=== PATIENT | male | born 1950 | race Caucasian/White ===

== ENCOUNTER → 2022-05-25 07:19 | Outpatient (CLI) | payer OTHER, SELFPAY ==
[2022-05-25 08:16] LABS: Add Manual Diff / Slide Review NO; Basophils Absolute Auto 0 /uL (0-100); Eosinophils Absolute Auto 300 /uL (0-450); Eosinophils Percent Auto 6.9 % (2-4); Hematocrit 38.5 % (41-53); Hemoglobin 13.2 g/dL (13.5-17.5); Lymphocytes Absolute Auto 700 /uL (1100-4500); Lymphocytes Percent Auto 16.2 % (25-40); Mean Corpuscular HGB Conc 34.4 % (30-36); Mean Corpuscular Hemoglobin 34.3 PG (26-34); Mean Corpuscular Volume 99.7 fL (80-100); Monocytes Absolute Auto 600 /uL (0-900); Monocytes Percent Auto 12.6 % (3-14); Neutrophils Absolute Auto 2900 /uL (1500-7000); Neutrophils Percent Auto 63.3 % (50-75); Platelet Count 205 X10^3/uL (150-400); Red Blood Cell Count 3.86 X10^6/uL (4.5-5.9); Red Cell Distribution Width 13.7 % (11.6-14.8); White Blood Cell Count 4.6 X10^3/uL (4.5-11.0)
[2022-05-25 09:17] LABS: BUN Creatinine Ratio 35.8 (6-22); Blood Urea Nitrogen 24 mg/dL (9-20); Calcium 9.1 mg/dL (8.4-10.2); Carbon Dioxide 30 mmol/L (22-32); Chloride 104 mmol/L (98-107); Estimated Glomerular Filt Rate > 60 mL/min (>60); Glucose 96 mg/dL (80-110); HEMOLYSIS < 15 (0-50); Potassium 4.8 mmol/L (3.4-5.1); Sodium 139 mmol/L (137-145)
== END ==
PROVIDERS: Family Provider Family Medicine; PCP Family Medicine; Referring Provider Orthopaedic Surgery; Visit Provider Orthopaedic Surgery
DX: Z01.818 Encounter for other preprocedural examination (principal); Z01.812 Encounter for preprocedural laboratory examination
CPT/HCPCS: 36415; 80048; 85025; 93005

== ENCOUNTER → 2022-09-07 10:51 | Outpatient (CLI) | payer OTHER, SELFPAY ==
[2022-09-07 12:19] LABS: COVID19 -Nasal RAPID Negative (Negative)
== END ==
PROVIDERS: Family Provider Family Medicine; PCP Family Medicine; Referring Provider Orthopaedic Surgery; Visit Provider Orthopaedic Surgery
DX: Z20.822 Contact with and (suspected) exposure to COVID-19 (principal)
CPT/HCPCS: 87635; C9803

== ENCOUNTER 2022-09-08 06:21 | Day surgery (SDC) | payer OTHER, SELFPAY ==
[2022-09-02 13:17] VITALS: BMI 24.1
[2022-09-08] VITALS (15 sets, daily range): BP systolic 98–159; BP diastolic 61–97; PULSE 85–105; RESP 12–18; TEMP 36.3–37.3; O2SAT 94–100; BMI 24.1
--- NOTE | 2022-09-08 06:00 | DI.RAD.S_ITS ---
PROCEDURE: XR HIP W PEL IF DONE LT 2V INDICATIONS: LEFT TOTAL HIP TECHNIQUE: AP pelvis with lateral view(s) of the left hip(s). COMPARISON: [facility], CR, XR HIP W PEL IF DONE LT 2V, 09/08/2022, 10:50. [facility], CR, XR PELVIS WITH LATERAL HIP LEFT, 05/21/2022, 10:27. FINDINGS: Fluoroscopic images of the left hip arthroplasty. The arthroplasty projects in the expected location. No unexpected fracture is identified. Prior right hip arthroplasty. Vasectomy clips. IMPRESSION: Expected fluoroscopic appearance of the left hip arthroplasty. Dictated by: Janusz Borges M.D. on 09/08/2022 at 11:10 Approved by: Janusz Borges M.D. on 09/08/2022 at 11:12
[2022-09-08] MEDS: ACETAMINOPHEN 325 MG TABLET 975 MG PO (06:57)
[2022-09-08] MEDS: CELECOXIB 200 MG CAPSULE PO (06:58)
[2022-09-08] MEDS: VANCOMYCIN 1,000 MG/200 ML PIGGYBACK 200 MG IV (06:58)
[2022-09-08] MEDS: PREGABALIN 75 MG CAPSULE PO (06:58)
[2022-09-08] MEDS: LACTATED RINGERS 1,000 ML 84 ML IV ×3 (06:59→09:43)
--- NOTE | 2022-09-08 07:54 | PM.PREOP ---
Pre-operative Note COVID-19 COVID-19 status: Negative Interval Note History & Physical reviewed/Exam performed by Physician: Yes Changes to H&P: No
--- NOTE | 2022-09-08 07:57 | P.OP_ITS ---
Operative Date/Time/Diagnoses Date of procedure: 09/08/22 Time of procedure: 08:10 Pre-op diagnosis: left hip OA Post-op diagnosis: same Procedure & Clinicians Procedure: left total hip arthroplasty anterior approach Same procedure as scheduled: Yes Indications: The patient has had progressively worsening left hip pain with radiographic wall ges consistent with arthritis. Non-operative management has failed and the patient has requested total hip replacement. The risks, benefits and alternatives to surgery were discussed with the patient prior to proceeding. Risks discussed included, but were not limited to, failure to relieve pain, leg length discrepancy, dislocation, stiffness, infection, nerve damage, deep venous thrombosis, pulmonary embolism, stroke, coma, heart attack, permanent paralysis and , as well as the potential need for eventual revision of the prosthetic. Surgeon: Victoria Clements Line Production Cook: Miguel Dumas Anesthesia Type: General Operative Notes Findings: Severe left hip osteoarthritis, good stability, adequate bone Closure Type: primary Specimen(s): none sent Prosthetic devices, grafts, tissues, transplants, or devices: [employer] R3 56 mm cup, neutral poly liner, size 6 anthology A standard offset stem, Oxinium 36 x +0 femoral head, one 6.5mm screw Estimated Blood Loss (mL): 200 Blood products transfused: none Procedure in detail: The patient was brought to the operating room. Patient was carefully positioned in the supine position. Time-out was performed and antibiotics were given. Anesthesia was induced. He was positioned in the on the table in order to allow hyperextension of the hip. The left lower extremity was prepped and draped in a standard sterile fashion. An anterior left hip incision was made 1 fingerbreadth lateral to the anterior superior iliac spine and extended distally towards the greater trochanter. Dissection was carried out through skin and subcutaneous tissues. Superficial hemostasis was achieved. The fascia over the tensor fascia johana was defined and incised with a knife. Two Allis clamps were used to grasp the fascia. Tensor fascia johana was retracted laterally. A gelpi retractor was placed. Dissection was carried out down along the neck. The circumflex vessels were carefully identified and cauterized with the Aqua Mantis. There was good visualization of the femoral neck. A Cobra was placed superior to the neck and the gluteus fibers were carefully stripped from that superior aspect of the capsule. A 2nd retractor was placed along the inferior aspect of the neck. The rectus insertion along the capsule was partially released. A 3rd retractor that was then gently placed over the rim of the acetabulum under the rectus. Capsule was carefully incised and released from the intertrochanteric line circumferentially superior to the mid sagittal line and inferiorly to the mid sagittal line until the lesser trochanter was palpable. A tag stitch was placed both in the superior and inferior limb of the capsular insertion. Along the acetabulum capsule was also released up to the mid sagittal 12:00 position. A portion of the labrum was resected. A saw was used to perform an osteotomy at the level of the intertrochanteric line and the junction of the superior femoral neck leaving approximately 1 finger breath of residual inferior neck above the lesser trochanter. A 2nd cut was made along the femoral neck at the base of the head and a napkin ring of neck was removed. Corkscrew was placed in the femoral head and the head was removed without difficulty. Retractors were then repositioned around the acetabulum. Residual labrum was resected and additional osteophytes were removed. A reamer that was 4 mm below the templated size was placed by hand in the acetabulum and it was reamed to centralize the acetabulum. It was then reamed up to 2 under the templated size and fluoroscopy was brought in to confirm the position of the reaming and depth of reaming. I reamed 1 under the anticipated size. A trial cup was placed and noted that it was appropriately sized and fluoroscopy confirmed position and depth. The component was open and inserted without difficulty fluoroscopic imaging was used to confirm that the cup had been adequately seated and was well positioned. It was further stabilized with a single screw. Neutral poly liner was placed. The cup was tested and noted to be stable. Attention was then directed to the femur. The femur was gently hyperextended additional capsular release was performed as needed in order to allow adequate visualization of the proximal femur with elevation of the femur. Patient was placed in a hyperextended slightly adducted position with maximum external rotation. Box osteotome was used to check for any residual neck as well as sclerotic bone along the trochanter. [place] pepper was placed in the femur. Additional broaching was performed. Canal finder was used to determine the alignment of the canal and position. Size 1 broach was placed. The canal was then appropriately broached up to the templated size as long as there was adequate stability of the broach and serial advancement of the broach without excessive impingement. Specific attention was directed at avoiding varus attempting to direct the distal aspect of the broach more anteriorly and avoiding excessive anteversion. Trial reduction showed acceptable range of motion, good stability, no posterior impingement, restorationist of leg length and appropriate lateral shuck. I also hyperflexed the hip and checked that there was no impingement anteriorly and there was good stability with flexion, adduction and internal rotation. Marcaine and Exparel were injected. The stem was placed without difficulty. Repeat trial reduction and x-ray showed acceptable overall position, length, and no evidence of the femoral fracture. Final head was placed. Wound was meticulously irrigated with normal saline. The hip was reduced and additional Exparel and Marcaine were injected. The capsule was closed with interrupted nonabsorbable sutures. The fascia of the tensor was closed with interrupted and running Vicryl. No drain was placed. Any tensor fascia johana muscle that appeared to be contused or injured which was a minimal amount was carefully resected. Capsule around the tensor was injected with Exparel and Marcaine. The skin was closed with barbed stitches for the subcutaneous tissue and skin. We also used surgical glue. The wound was dressed sterilely. Brief Betadine soak was also used and was meticulously irrigated with normal saline. Patient was transferred to recovery room in satisfactory condition. Complications: none Post-operative Condition: stable Disposition: Acute Care Plan for aftercare: The patient will be maintained on a standard total hip replacement protocol with weight bearing as tolerated and anterior hip precautions. The patient will receive Aspirin and sequential compression devices for DVT prophylaxis. The patient will be discharged home when safe for the home environment.
[2022-09-08] MEDS: CEFAZOLIN 2 GM/100 ML PREMIX 100 ML IV ×2 (08:15→20:11)
[2022-09-08] MEDS: TRANEXAMIC ACID 1,000 MG VIAL 2000 MG INJ ×2 (08:20→10:13)
[2022-09-08] MEDS: BUPIVACAINE 0.25% (PF) 60 ML, EPINEPHrine 0.3 MG INJ (08:32)
[2022-09-08] MEDS: BUPIVACAINE 0.5% (PF) VIAL 30 ML INJ (08:33)
--- NOTE | 2022-09-08 08:40 | SUR.OPER ---
Supine on padded [place] table with bilateral legs secured in padded positioning boots and suspended in positioning spars, operative leg in traction per surgeon. Head on one pillow. Arm on non-operative side secured on padded armboard <90 degrees abduction. Arm on operative side padded and resting across chest then secured with tape over sheet. Padded perineal post in place per surgeon.
--- NOTE | 2022-09-08 10:15 | DI.RAD.S_ITS ---
PROCEDURE: XR HIP W PEL IF DONE LT 2V INDICATIONS: POST OPERATIVE TOTAL LEFT HIP TECHNIQUE: AP pelvis and lateral view of the left hip acquired. COMPARISON: [facility], GIAN, XR HIP W PEL IF DONE LT 2V, 09/08/2022, 10:30. FINDINGS: Bones: Patient is status post left total hip arthroplasty, with hardware components in expected positions. The hip joint appears congruent. The visualized bony structures appear intact. Prior right total hip arthroplasty is again seen. Soft tissues: Overlying postoperative changes are noted. No suspicious soft tissue densities. IMPRESSION: Postop changes from left total hip arthroplasty with anatomic left hip alignment. Dictated by: Yonatan Castillo M.D. on 09/08/2022 at 12:17 Approved by: Yonatan Castillo M.D. on 09/08/2022 at 12:17
--- NOTE | 2022-09-08 11:22 | SUR.PHASEI ---
1120 contacted floor worker and waiting on a room for pt.
[2022-09-08] MEDS: IBUPROFEN 400 MG TABLET PO (14:50)
[2022-09-08] MEDS: ACETAMINOPHEN 325 MG TABLET 650 MG PO ×2 (14:51→20:11)
[2022-09-08] MEDS: LACTATED RINGERS 1,000 ML 125 ML IV (15:00)
--- NOTE | 2022-09-08 15:47 | PT.IIE ---
Current Diagnoses Unilateral primary osteoarthritis, left hip (09/08/22) Surgery Performed Operation Date: 09/08/22 07:45 Actual Procedures p Total Hip Arthroplasty/Anterior Approach(Left) - Victoria Clements MD Surgical History (Last Updated 09/02/22 @ 14:16 by Olive Win, RN) History of surgery History of total right hip replacement (2007) Hx of colonoscopy Medical History (Last Updated 09/02/22 @ 14:16 by Olive Win RN) BPH (benign prostatic hyperplasia) Diverticulosis Hearing impairment HLD (hyperlipidemia) HTN (hypertension) Macular degeneration Osteoarthritis Psoriasis Retinal detachment Physical Therapy Inpatient Evaluation/Re-Eval M1 PT/OT-IP Prior Functional Status Start: 09/08/22 17:23 Freq: NEEDED Status: Active Protocol: Document 09/08/22 15:47 AB (Rec: 09/08/22 17:44 AB [id number]) Medical Review Prior Functional Status Medical History Reviewed Yes Communication able to make needs known Mobility and Gait pt stated that he is independent with all mobilities and ambulation without AD Social History Household Members spouse Living Arrangements House Number of Floors (Floors) 3 or More Floors Number of Stairs To Enter/Railing? pt just stays on the main level of the house 12 steps L rail + R wall to get to main level of the house Home Environment Standard Height Toilet,Walk in Shower Home Equipment Front Wheel Walker,Straight Cane,Crutches,Raised Toilet Seat Without Armrests,Grab Bars In Shower M2 PT-IP Current Condition Start: 09/08/22 17:23 Freq: NEEDED Status: Active Protocol: Document 09/08/22 15:47 AB (Rec: 09/08/22 17:44 AB [id number]) Physical Therapy Current Condition Current Condition Evaluation Date 09/08/22 Treatment Diagnosis s/p LTHA anterior approach; difficulty in walking Onset Date 09/08/22 M3 PT-IP Subjective Start: 09/08/22 17:23 Freq: NEEDED Status: Active Protocol: Document 09/08/22 15:47 AB (Rec: 09/08/22 17:44 AB [id number]) Subjective Physical Therapy Visit Type Type Initial Evaluation Visit Start Time 15:47 Visit Stop Time 16:35 Total Visit Minutes 48 Number of TURN DOWN MAN Visits 0 Physical Therapy Visit Comments Patient Comments agreeable to do PT Therapy Pain Assessment Pain When Pain Assessed During Mobility Pain Present Pain Present Pain Reported Location Left hip Scale Used pain scale not stated Pain Management Techniques Apply Cold,Re-positioning, Timing of Activity with Medications M4 PT-IP Mobility and Gait Start: 09/08/22 17:23 Freq: NEEDED Status: Active Protocol: Document 09/08/22 15:47 AB (Rec: 09/08/22 17:[address] [facility]-Bed Mobility Assessment Supine to Sit Supine to Sit Standby Assistance PT-Transfer Assessment Sit to and From Stand Sit to and from Stand Moderate Assistance,Maximum Assistance,1 Person Assistance ,Use of Upper Extremities Equipment Transfer Assistive Device Gait Belt,Front Wheeled Walker Orthotic/Prosthetic Devices or Brace: No Transfers Transfer Destination Chair Transfer Technique ambulated Transfer Ability Level of Assist Moderate Assistance,1 Person Assistance,Use of Upper Extremities Comments Mobility Comments educated pt on anterior hip precautions. needs dues to recall. pt can be impulsive and has difficulty following directions. completed supine to sit SBA. able to sit on EOB CGA. completed sit to stand max A and unable to fully stand up. pt is impulsive. cued for safety. educated on techniques for sit to stand. completed sit to stand again mod A and cues. No c/o dizziness/lightheadeness. ambulated in room using FWW ~ 25 ft mod A. step by step cues given and techniques and precautions. pt agreed to sit up on the chair. positioned on the chair. call light and table placed within reach. set up caregiver training at 9 am tomorrow. Gait Assessment Gait Gait Assistance Required: Moderate Assistance Distance (Feet) 25 Able to Maintain Weight Bearing Status Yes During Gait Assistive Devices Assistive Device Gait Belt,Front Wheeled Walker Orthotic/Prosthetic Devices or Brace: No Gait Deviations General Gait Pattern Decreased Stride Length, Decreased Feet Clearance Factors Limiting Gait Function Factors Limiting Gait Function Decreased Activity Tolerance, Decreased Strength,Difficulty Following Directions,Pain,Poor Balance,Poor Safety Awareness PT-Balance Assessment Sitting Balance and Reactions Static Sitting Balance Ability Good Dynamic Sitting Balance Ability Fair Standing Balance and Reactions Static Standing Balance Ability Fair Dynamic Standing Balance Ability Poor Device Used FWW M5 PT-IP Objective Assessments Start: 09/08/22 17:23 Freq: NEEDED Status: Active Protocol: Document 09/08/22 15:47 AB (Rec: 09/08/22 17:44 AB [id number]) Orientation Orientation/Cognition Level of Alertness Alert Orientation Name Language Function Ability Hard of Hearing Safety Awareness Decreased Safety Awareness Memory Description No Deficits Noted Gross Range of Motion Lower Extremity ROM Assessment Within Functional Limits Strength Lower Extremity Strength Assessment Left Impaired Hip 3+/5 Knee 3+/5 Sensation Assessment Sensation Gross Sensation WNL Muscle Tone Muscle Tone WNL Yes M6 PT-IP Treatment Start: 09/08/22 17:23 Freq: NEEDED Status: Active Protocol: Document 09/08/22 15:47 AB (Rec: 09/08/22 17:44 AB [id number]) Physical Therapy Treatment Education Education Provided Precautions,Weight Bearing Status,Post-Op Packet,Safety M7 PT-IP Assessment and Plan Start: 09/08/22 17:23 Freq: NEEDED Status: Active Protocol: Document 09/08/22 15:47 AB (Rec: 09/08/22 17:44 AB [email or web address]) PT Summary Assessment and Plan Potential Rehabilitation Potential Fair Status of Condition at Evaluation Evolving Summary Impairments Pain,ROM,Strength,Balance, Coordination,Sensation,Tone, Cognition,Bed Mobility, Transfers,Gait,Activity Tolerance Assessment Summary pt requiring mod A with mobility using FWW and max cues with all tasks. caregiver training set up for tomorrow at 9 am. will continue to assess progress. pt stated that he has outpt PT set up. Goals Bed Mobility Goal Independent Transfer Goal Independent,Front Wheeled Walker Gait Goal Independent,Front Wheel Walker Gait Distance 150 Other Goals up/down 12 steps L rail SBA Days to Meet Goals 5 Frequency of Treatment Frequency Of Treatment Twice a Day Treatment Plan Physical Therapy Treatment Plan Bed Mobility Training,Transfer Training,Gait Training, Therapeutic Exercise,Balance Retraining,Post Op Education, Discharge Planning,Hot or Cold Pack,Neuromuscular Re-ed, Coordination Retraining,Manual Therapy Precautions Anterior Hip Precautions No Hip Extension,No Hip External Rotation Weight Bearing Status Weight Bearing Status Weight Bear as Tolerated Allowed Weight Bearing Amount (enter % LLE WBAT or #) (%) Recommendations To Nursing Amount of Assist Needed 1 Person Assist Discharge Recommendations PT Discharge Recommendations Home with Assistance, Outpatient PT Transportation Needs at Discharge Private Vehicle
--- NOTE | 2022-09-08 19:29 | PC.NURSE ---
Pt arrived from PACU this afternoon A&Ox3 shortly after lunch. VSS,afebrile on RA. He reports pain is tolerable to L hip at 3/10 and aquacel c/d/i. He is able to tolerate lunch and dinner well. He is able to stand at edge of bed and work with therapy however reports he has no urge to void and states he last voided this a.m. prior to surgery at approximately 0530 a.m. He is bladder scanned and results reveal >700 cc. Pt is straight cath' and 900 cc clear yellow urine resulted. PVR= 0cc. Continuous monitoring. LR at 125 ml/hr.
[2022-09-08] MEDS: ASPIRIN EC 81 MG TABLET PO (20:11)
[2022-09-08] MEDS: DOCUSATE 100 MG CAPSULE PO (20:12)
[2022-09-08] MEDS: OXYCODONE IR 5 MG TABLET PO (20:12)
[2022-09-09] MEDS: IBUPROFEN 400 MG TABLET PO ×2 (00:19→05:43)
[2022-09-09] MEDS: ACETAMINOPHEN 325 MG TABLET 650 MG PO ×2 (00:19→05:43)
[2022-09-09 02:30] VITALS: BP 134/80; PULSE 98; RESP 16; TEMP 37.1; O2SAT 94
[2022-09-09] MEDS: OXYCODONE IR 5 MG TABLET PO ×2 (03:10→08:35)
[2022-09-09] MEDS: CEFAZOLIN 2 GM/100 ML PREMIX 100 ML IV (03:13)
[2022-09-09 06:52] LABS: Hemoglobin 11.4 g/dL (13.5-17.5)
--- NOTE | 2022-09-09 07:19 | P.DS_ITS ---
History of Present Illness History of Present Illness Date Patient Seen: 09/09/22 Time Patient Seen: 07:19 Chief complaint: left PRIMITIVO Narrative: Patient is complaining of [id number] left hip pain this morning. He worked with physical therapy yesterday. He notes that overall he is feeling good and would like to go home today. He denies any new numbness or tingling down his legs, no nausea or vomiting. Discharge Providers Provider Discharge Date: 09/09/22 Primary care physician: Layton Corado MD Consults: 09/08/22 06:00 Consult to Anesthesiology Routine Comment: Consulting Provider: Anesthesiologist Reason for consultation: Regional block for post operative pain control 09/08/22 12:58 Consult to Discharge Planning Routine Comment: Consult to Physical Therapy Evaluate & Treat Comment: Physician Instructions: post op PRIMITIVO protocol Discharge provider: Socorro Aguilera PA-C Summary Hospital Course Discharge Diagnosis: Left hip osteoarthritis Hospital Course: Operative Date/Time/Diagnoses Date of procedure: 09/08/22 Time of procedure: 08:10 Procedure & Clinicians Procedure: left total hip arthroplasty anterior approach Same procedure as scheduled: Yes Indications: The patient has had progressively worsening left hip pain with radiographic changes consistent with arthritis. Non-operative management has failed and the patient has requested total hip replacement. The risks, benefits and alternative s to surgery were discussed with the patient prior to proceeding. Risks discussed included, but were not limited to, failure to relieve pain, leg length discrepancy, dislocation, stiffness, infection, nerve damage, deep venous thrombosis, pulmonary embolism, stroke, coma, heart attack, permanent paralysis and , as well as the potential need for eventual revision of the prosthetic. Surgeon: Victoria Clements Project Crew Worker: Miguel Dumas Anesthesia Type: General Operative Notes Findings: Severe left hip osteoarthritis, good stability, adequate bone Closure Type: primary Specimen(s): none sent Prosthetic devices, grafts, tissues, transplants, or devices: Clements and Nephew R3 56 mm cup, neutral poly liner, size 6 anthology A standard offset stem, Oxinium 36 x +0 femoral head, one 6.5mm screw Estimated Blood Loss (mL): 200 Blood products transfused: none Status at Discharge Cognitive/behavioral status at discharge: at baseline, oriented Functional status at discharge: uses cane/walker Overall status at discharge: patient is progressing back to baseline Exam Vital Signs (past 8 hours): - 09/09/22 02:30 Temperature 98.7 F Pulse Rate 98 H Respiratory Rate 16 Blood Pressure 134/80 Pulse Oximetry 94 Oxygen Flow Rate 0 Oxygen Delivery Method Room Air Oxygen Flow Rate 0 Narrative Exam Narrative: Pleasant 72-year-old male, resting comfortably in bed, no acute distress. Left hip anterior dressing is clean, dry, intact. There is no surrounding erythema, induration, or héctor pus. Bilateral lower extremity: Motor functions are grossly intact, sensation is grossly intact to light touch, calves are soft and nontender to palpation. Objective Labs Result Diagrams: 09/09/22 06:24 Labs: Laboratory Results - last 24 hr 09/09/22 06:24 Hgb 11.4 L Hct 33.0 L PFSH Medical History BPH (benign prostatic hyperplasia) Diverticulosis Hearing impairment HLD (hyperlipidemia) HTN (hypertension) Macular degeneration Osteoarthritis Psoriasis Retinal detachment Surgical History History of surgery History of total right hip replacement (2007) Hx of colonoscopy Social History household members: spouse Smoking Status: Former smoker alcohol intake: current Discharge Assessment & Plan Assessment and Plan Assessment: -stable status post left total hip arthroplasty, anterior approach -mild postoperative hemorrhagic anemia, asymptomatic Plan of Treatment: -mobilize with physical therapy. Weightbearing as tolerated with front wheel walker or cane. Maintain anterior hip precautions x6 weeks -continue multimodal pain management. The patient notes he has prescriptions for all medications from his preoperative appointment. -Aspirin 81 mg twice daily x6 weeks for DVT prophylaxis -discharge home today once cleared by PT Discharge Plan Discharge Plan Patient Disposition: Home Discharge orders & Medications Discharge Orders: Discharge (Order); Ordered 09/09/22 Ordered By: Socorro Aguilera Prescriptions: New oxycodone 5 mg Tablet 5 mg PO Q3HR PRN (Reason: Pain, Moderate (4-6)) Qty: 1 0RF acetaminophen 500 mg capsule 500 mg PO Q4H MDD Max 3000 mg per day PRN (Reason: fever or pain) Qty: 90 0RF aspirin 81 mg Tablet,Delayed Release (Dr/Ec) 81 mg PO BID 42 Days Qty: 84 0RF Rx Instructions: Prevent blood clots docusate sodium 100 mg Capsule 100 mg PO BID PRN (Reason: constipation) Qty: 20 0RF Continued meloxicam 15 mg Tablet 15 mg PO DAILY oxycodone-acetaminophen 5-325 mg Tablet 0.5 tab PO Q4-6H PRN (Reason: Pain) tamsulosin 0.4 mg Capsule 0.4 mg PO DAILY simvastatin 20 mg Tablet 20 mg PO DAILY ibuprofen 200 mg Tablet 600 - 800 mg PO TID PRN (Reason: Pain) losartan-hydrochlorothiazide 50-12.5 mg Tablet 1 tab PO DAILY Discontinued aspirin 81 MG tablet,delayed release (DR/EC) 81 mg PO QDAY Qty: 0 Follow up/Referrals: Layton Corado MD [Primary Care Provider] - Vicotria Clements MD [Physician] - As previously scheduled (10-14 days for postoperative visit) Diet/Activity/Treatments Diet: Diet as Tolerated Other treatments: Medications: -Aspirin 81mg twice daily x6 weeks to prevent blood clots. -OTC Tylenol 500 mg 1 tablet every 4 hours as needed for pain/fever. Max 6 tablets per day. -Ibuprofen 400 mg 1 tablet every 4 hours as needed for pain/inflammation. Max 2,400 mg per day. -Oxycodone 5 mg take 1-2 tablets every 4 hours as needed for moderate-severe pain (narcotic pain medication). -As needed medications: -Ducolax and /or MiraLax as needed for constipation from narcotic pain medications. -Pepcid AC as needed for stomach upset (usually from aspirin or ibuprofen). Dressing/Wound care: -Keep Aquacell dressing in place until postoperative follow-up office visit. -Okay to shower. Keep wound out of direct water stream. No soaking or submerging until all the scabs fall off (approximately 6 weeks). -No lotions, ointments, or scar creams directly to the incision until the wound is healed (4-6 weeks), -Please call the office if dressing becomes wet, soiled, or saturated. Activities: -Maintain anterior hip precautions x6 weeks. -Weight-bearing as tolerated. Use front wheeled walker, and progress to cane when safe. -Continue with home exercises as directed by your physical therapist. -Elevate ?toes above the nose if you have significant swelling in your lower leg. (Jeanette wedge pillow is easiest.) -Ice your incision as needed for pain/inflammation/swelling. Protect your skin with a folded pillowcase. Follow-up: -Follow-up with your surgeon or PA in the office in 10-14 days after surgery. -Follow-up with your surgeon 6 weeks postoperatively. Call the office if you have chest pain, shortness of breath, significant swelling that will not resolve with elevating, fever over 101?, significantly worsening pain, or are concerned you might need to go to the Emergency Room. [facility]: [phone] Skin/Wound/Dressing Care Report to your healthcare provider any signs of infection, such as:: chills, fever, night sweats, unusual drainage and unusual redness Visit Report/Discharge Packet Instructions: DI for Hip Replacement Stand Alone Forms: Surgery Discharge Discharge Data Primary Care Provider: Layton Corado Attending Provider: Victoria Clements
--- NOTE | 2022-09-09 08:29 | CM.DANOTE ---
DCP Assessment: Payor confirmed: Vasques PCP confirmed: Layton Corado MD Pt is a 72 y.o. M who presented to the hospital for a scheduled L PRIMITIVO surgery with Dr. Clements. Pt brought up to the AC unit for post op management of surgical procedure. DCP met with pt this morning to discuss discharge needs. Pt sitting up in bed. DCP introduced herself and role. Pt is independent at baseline. Lives in [place] with his spouse, Barby, in a home that has 13 steps leading up to the house. Pt denies DME use at baseline. Pt does state that he has outpatient PT set up. Pt to have caregiver training this morning with PT @ 0900. Pt denies any resources at this time. Whiteboard updated and instructed to call. Pt thankful for discussion. No needs identified at this time. P: Caregiver training @ 0900 with spouse and PT. If cleared, pt to discharge home via spouse POV with outpatient PT. Cate Watt RN/OG Discharge Planning/Care Management Advanced directive, confirm from FAMILY Start: 09/08/22 15:12 Freq: Q24H Status: Active Protocol: Document 09/08/22 19:00 MS (Rec: 09/08/22 21:28 MS [id number]) Advance Directive, confirm on record Time 21:25 Person contacted Pt Copy received No CM Discharge Assessment Start: 09/09/22 08:28 Freq: Status: Active Protocol: Document 09/09/22 08:28 AJ (Rec: 09/09/22 08:29 AJ [id number]) Discharge Planning Assessment Assigned Industrial Illuminating Engineer Cate Watt RN/OG Advance Directives? Yes Advance Directives on File No History Provided By Patient Prior Living Arrangements House Household Members spouse Type of transporation used prior to Drives own vehicle admit Independent with ADL's Yes Is patient alert and oriented? Yes Caregiver for Another No Patient/Family Preference OP PT Therapy Discharge Plan Home Community Services Physical Therapy Transportation Arrangement Spouse POV Referrals Initiated None needed Whiteboard Updated in Patient Room with Yes name and ext. # of Industrial Illuminating Engineer Comment Instructed to call Review Status In Process Please Provide Date Initial DC 09/09/22 Assessment Was Performed Next Review Type Continued Stay Review Pre-Anesthesia Assessment Start: 09/02/22 13:17 Freq: Status: Active Protocol: Document 09/02/22 13:17 CAB (Rec: 09/02/22 14:31 [facility] [id number]) Pre-Anesthesia Assessment Patient Information Reviewed Via Phone Assessment Assessment Completed With Patient Diagnostic Results BMP/CMP,CBC,EKG Comment Labs/ECG @ [facility] 05/25/22, COVID screen-needs to schedule Primary Care Provider Layton Corado Seen Specialist in Last 12 Months Yes Specialist Seen Opthamologist/Fund Raiser, Orthopedist Primary Language Mauritanian Senior International Tax Manager Required No Height 182.88 cm Weight 80.739 kg Body Mass Index (BMI) 24.1 Hearing Ability Hearing Impaired Visual Assist None,Glasses Dentition Type Teeth, Natural Present Barriers to Learning None Hx Anesthesia Reactions No Hx Family Anesthesia Reaction No Hx Malignant Hyperthermia No Hx Blood Transfusions Yes: Autologous r/t RT PRIMITIVO Hx Blood Transfusion Reaction No Anesthesia Review Requested No alcohol intake current alcohol intake frequency 0-2 drinks per day Smoking Status Former smoker how long ago did patient quit smoking Quit approx 30 years ago Substance Use Type does not use Pain Present Pain Reported Musculoskeletal Symptoms Abnormal Gait,Back Pain, Difficulty Walking,Joint Pain, Neck Pain History of Falling (Recent or History of No ) Patient is completely paralyzed or No completely immobile Mental Status Oriented to own ability Does patient have URENA/SOB No Hx Sleep Apnea No Currently Taking a Beta Sugar Yes: Atenolol Can You Climb a Flight of Stairs Without Yes SOB Hx Chest Pain No Hx SOB No Hx Syncope or Dizziness No Anti-Coagulant Therapy No Has a Insole Coverer No Cardiac Testing No Hx Pacemaker/ICD No Pacemaker Rep Required? No Diet Type At Home Regular Gastrointestinal Symptoms Constipation Bladder Pattern Incontinent Urinary Catheter Present No Hx Urinary Self Catheterization No Diabetes No Hx Drug Resistant Organism No Presence of External or Internal Medical Yes: Right hip prosthesis Devices Have you had any close contact with No someone diagnosed with COVID-19? Received a COVID vaccine? Yes Received all doses? Yes Marital Status Lives With spouse Current Living Arrangements House Number of Floors (Floors) 3 or More Floors Support System Spouse Does the Patient Have Assistance After Yes Surgery Patient Discharge Plan Description Return Home Comment Pt not advised on length of stay per surgeon Feels Safe in Current Environment Yes Been Physically Hurt or Threatened By a No Person in Current Environment Do you have thoughts of harming yourself None or others? Are you currently considering suicide? No Do you have a plan to hurt yourself or No Plan others? Do You Have Any Spiritual Beliefs That No May Affect Your HC Choices? Do You Have Any Cultural Practices That No May Affect Your HC Choices? Comment Episcopal Who Can We Speak to About Patient's Care Family, friends Identifying Code for Release of Patient Declines to issue Information Health Care Proxy/Next of Kin Noni () Health Care Proxy Emergency Contact Name Noni () Emergency Contact Advance Directives? Yes Advance Directives on File No Power of Outside Salesman Yes Power of Outside Salesman Name Noni () Power of Outside Salesman PAC Instructions Durable medical equipment, Medications to take/avoid, Nasal antibiotic,No ETOH/ petroleum product on skin DOS, NPO,Post-op transportation, Sensory aids,Sturdy shoes/ comfortable clothes,Do not bring valuables and remove jewelry
[2022-09-09] MEDS: ASPIRIN EC 81 MG TABLET PO (08:33)
[2022-09-09] MEDS: DOCUSATE 100 MG CAPSULE PO (08:33)
[2022-09-09] MEDS: ATORVASTATIN 20 MG TABLET 10 MG PO (08:33)
[2022-09-09 08:34] VITALS: BP 116/68; PULSE 83
[2022-09-09] MEDS: LOSARTAN 50 MG TABLET PO (08:34)
[2022-09-09] MEDS: hydroCHLOROthiazide 25 MG TABLET 12.5 MG PO (08:34)
[2022-09-09] MEDS: TAMSULOSIN 0.4 MG CAPSULE PO (08:34)
[2022-09-09 08:39] VITALS: BP 116/68; PULSE 83; RESP 16; TEMP 36.3; O2SAT 96
--- NOTE | 2022-09-09 09:21 | PT.IPTN ---
Current Diagnoses Unilateral primary osteoarthritis, left hip (09/08/22) Surgery Performed Operation Date: 09/08/22 07:45 Actual Procedures p Total Hip Arthroplasty/Anterior Approach(Left) - Victoria Clements MD Physical Therapy Treatment Note M2 PT-IP Current Condition Start: 09/08/22 17:23 Freq: NEEDED Status: Active Protocol: Document 09/08/22 15:47 AB (Rec: 09/08/22 17:44 AB [id number]) Physical Therapy Current Condition Current Condition Evaluation Date 09/08/22 Treatment Diagnosis s/p LTHA anterior approach; difficulty in walking Onset Date 09/08/22 M3 PT-IP Subjective Start: 09/08/22 17:23 Freq: NEEDED Status: Active Protocol: Document 09/09/22 09:11 LJ (Rec: 09/09/22 09:20 LJ [id number]) Subjective Physical Therapy Visit Type Type Treatment Note Visit Start Time 08:51 Visit Stop Time 09:12 Total Visit Minutes 21 Number of PERFORMANCE MANAGER Visits 1 Physical Therapy Visit Comments Patient Comments agreeable to do PT. CGT with Therapy Pain Assessment Pain When Pain Assessed During Mobility Pain Present Pain Present Pain Reported M4 PT-IP Mobility and Gait Start: 09/08/22 17:23 Freq: NEEDED Status: Active Protocol: Document 09/09/22 09:11 LJ (Rec: 09/09/22 09:20 LJ [id number]) PT-Bed Mobility Assessment Supine to Sit Supine to Sit Standby Assistance Scooting Scooting to Edge of Bed Standby Assistance PT-Transfer Assessment Sit to and From Stand Sit to and from Stand Standby Assistance,Use of Upper Extremities Equipment Transfer Assistive Device Gait Belt,Front Wheeled Walker Orthotic/Prosthetic Devices or Brace: No Transfers Transfer Destination Chair Transfer Technique ambulated Transfer Ability Level of Assist Standby Assistance Comments Mobility Comments Pt SBA with all bed mobiility and transfers. in room learning how to assist pt. Gait Assessment Gait Gait Assistance Required: Standby Assistance Distance (Feet) 300 Able to Maintain Weight Bearing Status Yes During Gait Assistive Devices Assistive Device Gait Belt,Front Wheeled Walker Orthotic/Prosthetic Devices or Brace: No Gait Deviations General Gait Pattern Decreased Stride Length, Decreased Feet Clearance Factors Limiting Gait Function Factors Limiting Gait Function Decreased Activity Tolerance, Decreased Strength,Pain,Poor Balance Comments Gait Comments Pt ambulated in hallway ~300' to stairs and end of castillo then back to room. He uses FWW properly and is normalizing gait. Stair Climbing Assessment Evaluation Level of Assist On Stairs Standby Assistance Devices Stair Climbing Assistive Devices Right Railing Technique/Endurance Stair Climbing Direction Ascend and Descend Stair Climbing Technique Step to Step Number of Steps Climbed 3 Stair Climbing Set # Repetitions (reps) 2 Comments Stair Climbing Comments Pt safely able to go up/down stairs with right rail safely M5 PT-IP Objective Assessments Start: 09/08/22 17:23 Freq: NEEDED Status: Active Protocol: Document 09/08/22 15:47 AB (Rec: 09/08/22 17:44 AB [email or web address]) Orientation Orientation/Cognition Level of Alertness Alert Orientation Name Language Function Ability Hard of Hearing Safety Awareness Decreased Safety Awareness Memory Description No Deficits Noted Gross Range of Motion Lower Extremity ROM Assessment Within Functional Limits Strength Lower Extremity Strength Assessment Left Impaired Hip 3+/5 Knee 3+/5 Sensation Assessment Sensation Gross Sensation WNL Muscle Tone Muscle Tone WNL Yes M6 PT-IP Treatment Start: 09/08/22 17:23 Freq: NEEDED Status: Active Protocol: Document 09/09/22 09:11 (Rec: 09/09/22 09:20 [id number]) Physical Therapy Treatment Education Education Provided Precautions,Weight Bearing Status,Post-Op Packet,Safety Other Treatments Other Treatment Performed education on technique to use to get into car M7 PT-IP Assessment and Plan Start: 09/08/22 17:23 Freq: NEEDED Status: Active Protocol: Document 09/09/22 09:11 (Rec: 09/09/22 09:20 [id number]) PT Summary Assessment and Plan Potential Rehabilitation Potential Good Status of Condition at Evaluation Stable Summary Impairments Pain,ROM,Strength,Balance, Coordination,Gait,Activity Tolerance Progress Towards Goals Safe For Discharge Assessment Summary Pt requiring SBA with all mobility and gait. Safe to go up/down stairs. Pt is appropriate for DC with assistance from . Goals Bed Mobility Goal Independent Transfer Goal Independent,Front Wheeled Walker Gait Goal Independent,Front Wheel Walker Gait Distance 150 Other Goals up/down 12 steps L rail SBA Days to Meet Goals 5 Frequency of Treatment Frequency Of Treatment Twice a Day Treatment Plan Physical Therapy Treatment Plan Bed Mobility Training,Transfer Training,Gait Training, Therapeutic Exercise,Balance Retraining,Post Op Education, Discharge Planning,Hot or Cold Pack,Neuromuscular Re-ed, Coordination Retraining,Manual Therapy Precautions Anterior Hip Precautions No Hip Extension,No Hip External Rotation Weight Bearing Status Weight Bearing Status Weight Bear as Tolerated Allowed Weight Bearing Amount (enter % LLE WBAT or #) (%) Recommendations To Nursing Amount of Assist Needed 1 Person Assist Discharge Recommendations PT Discharge Recommendations Home with Assistance, Outpatient PT
== END 2022-09-09 09:33 | disposition home or self-care (01) ==
LOC: OR 06:22 → AC 09:45
PROVIDERS: Family Provider Family Medicine; PCP Family Medicine; Referring Provider Orthopaedic Surgery; Visit Provider Orthopaedic Surgery
PROC: (CPT 27130; principal; 2022-09-08 07:45)
DX: M16.12 Unilateral primary osteoarthritis, left hip (principal); I10 Essential (primary) hypertension
CPT/HCPCS: 27130; 73502; 76000; 85014; 85018; 97116; 97162; 97530; C1776; J0171; J0330; J0690; J1170; J2405; J2704; J3010